=== PATIENT | male | born 1970 | race Caucasian/White ===

== ENCOUNTER 2020-08-04 09:36 | Outpatient (CLI) | payer OTHER, SELFPAY ==
--- NOTE | ~2020-08-04 | XR_ITS ---
EXAMINATION: XR hip BI wo pelvis EXAM DATE: 08/04/2020 11:05 INDICATION: right hip pain, left hip pain. TECHNIQUE: Each hip imaged independently (separate right and also left hip) 'frog leg' and frontal p rojections for interpretation. Comparison is made to prior examination from 11/09/2015. FINDINGS: No radiographic evidence of hip avascular necrosis. There is mild symmetric bilateral hip primary osteoarthritis. There is screw bridging the left sacroiliac joint. There are no acute fractur es or dislocations identified. There is no subcutaneous gas. The soft tissue is unremarkable. IMPRESSION: Mild bilateral hip osteoarthritis. Reviewed, dictated and finalized at location B. OR FITTER
--- NOTE | ~2020-08-04 | XR_ITS ---
EXAMINATION: XR lumbar spine min 4V EXAM DATE: 08/04/2020 11:05 INDICATION: Back pain. TECHNIQUE: Lumber spine frontal, lateral, bilateral oblique projections. Coned down frontal and lat eral L5-S1 lumbar projections for interpretation. Comparison is made to prior examination from 016. FINDINGS: There is an orthopedic screw bridging the left sacroiliac joint. No spondylolysis. There is mild to moderate lower lumbar facet arthropathy. Mild to moderate disc disease L4-5 and L5-S1. There are no acute fractures identified. The vertebral bodies are aligned in the AP dimension. Paraspinal soft tissue is unremarkable. IMPRESSION: Mild to moderate lower lumbar spondylosis. Reviewed, dictated and finalized at location B. CA DRY PRESS HELPER
== END 2020-08-04 09:37 ==
PROVIDERS: Visit Provider Pain Medicine Pain Medicine
DX: M47.812 Spondylosis without myelopathy or radiculopathy, cervical region (principal); M17.0 Bilateral primary osteoarthritis of knee; M16.0 Bilateral primary osteoarthritis of hip
CPT/HCPCS: 72110; 73521

== ENCOUNTER 2020-10-16 15:24 | Emergency (ER) | payer OTHER, SELFPAY ==
--- NOTE | ~2020-10-16 | XR_ITS ---
EXAMINATION: XR hip LT 2V w AP pelvis INDICATION: Left hip pain TECHNIQUE: AP view the pelvis and two views of the left hip are obtained. COMPARISON: 08/04/2020 FINDINGS: There is screw fixation of a prior left sacral fracture. There is deformity of the left pub ic bone near the pubic symphysis, consistent with prior fracture. No acute fracture is identified. Th ere is an approximately 8.5 cm soft tissue density projecting near the greater trochanter of the left femur. IMPRESSION: 1. No acute osseous abnormality. 2. Soft tissue density projecting near the greater trochanter of the left femur, likely hematoma. 3. Old left pelvic fractures. Reviewed, dictated and finalized at location A. IMPRESSION: 1. No acute osseous abnormality. 2. Soft tissue density projecting near the greater trochanter of the left femur , likely hematoma. 3. Old left pelvic fractures.
[2020-10-16 16:01] VITALS: BP 141/66; PULSE 73; RESP 20; TEMP 36.8; O2SAT 100
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
[2020-10-16 17:39] LABS: Basophils Percent Auto 0.3 % (0.2-1.2); Eosinophils Absolute Auto 0.2 K/mm3 (0-0.3); Hematocrit 44.4 % (42.0-52.0); Hemoglobin 15.3 g/dL (14.0-18.0); Immature Granulocyte Absolute 0.05 K/mm3 (0.00-0.031); Immature Granulocyte Percent A 0.5 % (0-0.5); Lymphocytes Absolute Auto 1.47 K/mm3 (0.9-3.2); Lymphocytes Percent Auto 14.1 % (18.3-44.2); Mean Corpuscular HGB Conc 34.5 g/dl (32-36); Mean Corpuscular Hemoglobin 32.3 pg (26-34); Mean Corpuscular Volume 93.7 fl (80-100); Mean Platelet Volume 10.3 fl (7.4-10.4); Monocytes Percent Auto 9.2 % (2.6-8.5); Neutrophils Absolute Auto 7.7 K/mm3 (1.3-6.7); Neutrophils Percent Auto 73.9 % (45.5-73.1); Platelet Count Result 230 k/mm3 (150-375); Red Blood Count 4.74 M/mm3 (4.6-6.20); Red Cell Distribution Width 12.7 % (11.5-14.5); White Blood Count 10.5 K/mm3 (4.5-10.0)
[2020-10-16 18:18] LABS: Anion Gap 4 mmol/L (8-16); Blood Urea Nitrogen 43 mg/dL (9-20); CRP 2.1 mg/dL (<1.0); Calcium 9.2 mg/dL (8.4-10.2); Carbon Dioxide 31 mmol/L (22-30); Chloride 105 mmol/L (98-107); Estimated CRCL calculation 47 ml/min; Estimated Glomerular Filt Rate 46; Glucose 134 mg/dL (75-110); Sodium 140 mmol/L (137-145)
[2020-10-16 18:25] LABS: Erythrocyte Sedimentation Rate 3 mm/hr (0-20)
== END 2020-10-16 19:15 | disposition home or self-care (01) ==
PROVIDERS: Emergency Provider Emergency Medicine; PCP Family Medicine
DX: S70.02XA Contusion of left hip, initial encounter (principal); E86.0 Dehydration; V86.09XA Driver of other special all-terrain or other off-road motor vehicle injured in traffic accident, initial encounter
CPT/HCPCS: 36415; 73502; 80048; 85025; 85652; 86140; 99283

== ENCOUNTER 2021-08-14 16:04 | Outpatient (CLI) | payer OTHER, SELFPAY ==
--- NOTE | ~2021-08-14 | MR_ITS ---
EXAMINATION: MR elbow LT wo con DATE: 08/14/2021 16:49 INDICATION: Left elbow pain post fall TECHNIQUE: Magnetic resonance imaging (MRI) of the left elbow was performed without intravenous contr ast. Sequences included coronal, axial, and sagittal PD-weighted FS FSE and coronal, axial, and sagit cherri PD-weighted FSE. COMPARISON: None FINDINGS: Osseous/other: Normal alignment. Normal marrow signal with no marrow edema, fracture, osteochondral lesion or patho logic marrow replacing process. Mild osteoarthritis at the left elbow with nonuniform partial thickne ss cartilage loss in all 3 compartments . Region deeper chondral ulceration with tiny focus of subart icular edema-like change along the rim of the radial head. Tendons: Triceps and brachialis tendons are normal. Mild tendinopathy without discrete tear at the radial inse rtion of the distal biceps brachii tendon. Moderate tendinopathy without discrete tear at lateral epi condylar origin of the common extensor tendon wad. Additional moderate tendinopathy of the common fl exor tendon wad with tiny tear measuring approximately 3 x 1 mm along the medial epicondylar insertio n. Ligaments: The medial collateral ligament complex is normal. Near complete tear of the radial collateral ligamen t component of the lateral collateral ligament complex the lateral ulnar collateral ligament and scott lar ligament components of the complex remain intact. Cubital tunnel: Cubital tunnel is unremarkable with normal signal and caliber of the ulnar nerve. Fluid: Physiologic amount of fluid the elbow joint. IMPRESSION: 1. Moderate tendinopathy with tiny partial-thickness tear at the medial epicondylar origin of the com mon flexor tendon wad. 2. Moderate tendinopathy without tear at the common extensor tendon wad. 3. Mild tendinopathy without tear at the distal biceps brachii tendon. 4. Complete tear of the radial collateral ligament component of the lateral collateral ligament compl ex. 5. Mild osteoarthritis in all 3 compartments of the left elbow. Reviewed, dictated and finalized at location A. IMPRESSION: 1. Moderate tendinopathy with tiny partial-thickness tear at the medial epicond ylar origin of the common flexor tendon wad. 2. Moderate tendinopathy without tear at the common extensor tendon wad. 3. Mild tendinopathy without tear at the distal biceps brachii tendon. 4. Complete tear of the radial collateral ligament component of the lateral col lateral ligament complex. 5. Mild osteoarthritis in all 3 compartments of the left elbow.
== END 2021-08-14 16:05 ==
DX: M77.02 Medial epicondylitis, left elbow (principal); S53.432A Radial collateral ligament sprain of left elbow, initial encounter; X58.XXXA Exposure to other specified factors, initial encounter; M19.022 Primary osteoarthritis, left elbow
CPT/HCPCS: 73221

== ENCOUNTER 2022-01-08 16:51 | Emergency (ER) | payer OTHER, SELFPAY ==
[2022-01-08] VITALS (8 sets, daily range): BP systolic 156–166; BP diastolic 73–90; PULSE 40–89; RESP 14–20; TEMP 36.6; O2SAT 98–100
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
[2022-01-08 19:59] LABS: Basophils Percent Auto 0.4 % (0.2-1.2); Eosinophils Absolute Auto 0.1 K/mm3 (0-0.3); Eosinophils Percent Auto 2.3 % (0-4.4); Hematocrit 37.1 % (42.0-52.0); Hemoglobin 12.9 g/dL (14.0-18.0); Immature Granulocyte Absolute 0.02 K/mm3 (0.00-0.031); Immature Granulocyte Percent A 0.4 % (0-0.5); Lymphocytes Absolute Auto 1.52 K/mm3 (0.9-3.2); Lymphocytes Percent Auto 29.1 % (18.3-44.2); Mean Corpuscular HGB Conc 34.8 g/dl (32-36); Mean Corpuscular Hemoglobin 32.1 pg (26-34); Mean Corpuscular Volume 92.3 fl (80-100); Mean Platelet Volume 10.5 fl (7.4-10.4); Monocytes Absolute Auto 0.5 K/mm3 (0.1-0.6); Monocytes Percent Auto 10.3 % (2.6-8.5); Neutrophils Percent Auto 57.5 % (45.5-73.1); Platelet Count Result 199 k/mm3 (150-375); Red Blood Count 4.02 M/mm3 (4.6-6.20); Red Cell Distribution Width 13.2 % (11.5-14.5); White Blood Count 5.2 K/mm3 (4.5-10.0)
[2022-01-08 20:08] LABS: Alanine Aminotransferase 45 U/L (6-50); Albumin Level 3.9 g/dL (3.5-5.1); Alkaline Phosphatase 90 U/L (38-126); Anion Gap 8 mmol/L (8-16); Aspartate Amino Transferase 42 U/L (17-59); Bilirubin,Total 0.6 mg/dL (0.2-1.3); Blood Urea Nitrogen 15 mg/dL (9-20); Calcium 8.9 mg/dL (8.4-10.2); Carbon Dioxide 30 mmol/L (22-30); Chloride 101 mmol/L (98-107); Estimated CRCL calculation 88 ml/min; Estimated Glomerular Filt Rate > 60; Glucose 97 mg/dL (65-110); Potassium 4.1 mmol/L (3.4-5.0); Sodium 139 mmol/L (137-145)
[2022-01-08] MEDS: KETOROLAC 30 MG/ML VIAL (*BKC) IV PUSH (21:54)
== END 2022-01-08 22:04 | disposition home or self-care (01) ==
PROVIDERS: Physician Assistant; Emergency Provider Emergency Medicine; PCP Family Medicine
DX: S30.0XXA Contusion of lower back and pelvis, initial encounter (principal); R00.1 Bradycardia, unspecified; V29.9XXA Motorcycle rider (driver) (passenger) injured in unspecified traffic accident, initial encounter
CPT/HCPCS: 36415; 74177; 80053; 85025; 96374; 99284; J1885; Q9967

== ENCOUNTER 2023-07-26 13:42 | Outpatient (CLI) | payer OTHER, SELFPAY ==
--- NOTE | ~2023-07-26 | XR_ITS ---
Right elbow Technique: AP, oblique, and lateral views were obtained. Clinical History: Pain Findings: No acute fracture or dislocation is seen. Osseous alignment is anatomic. Joint spaces are p reserved. There is no displacement of the fat pads, and soft tissues are unremarkable. Impression: Unremarkable radiographs. Reviewed, dictated and finalized at [facility]. RIBUTION A CLASS LINEMAN Impression: Unremarkable radiographs.
== END 2023-07-26 13:43 ==
LOC: MICIMG 13:45
PROVIDERS: PCP Pain Medicine Pain Medicine; Visit Provider Pain Medicine Pain Medicine
DX: M25.521 Pain in right elbow (principal)
CPT/HCPCS: 73080

== ENCOUNTER 2023-11-07 14:05 | Outpatient (CLI) | payer OTHER, SELFPAY ==
--- NOTE | ~2023-11-07 | XR_ITS ---
XR lumbar spine 2-3V 11/07/2023 14:21 Indication: Back pain Procedure: 3 views lumbar spine Comparison: 08/04/2020 Findings: Stable alignment of plaque screw transfixing the left sacroiliac joint. There is disc narro wing at L2-3 through L5-S1. Small bridging osteophytes are present at L2-3 and L3-4 on the left. No a cute fracture or traumatic malalignment. No evidence for spondylolisthesis. Impression: 1: Mild-moderate lumbar spondylosis. Reviewed, dictated and finalized at location B. Impression: 1: Mild-moderate lumbar spondylosis.
== END 2023-11-07 14:06 ==
PROVIDERS: PCP Pain Medicine Pain Medicine; Visit Provider Pain Medicine Pain Medicine
DX: M47.816 Spondylosis without myelopathy or radiculopathy, lumbar region (principal); M51.36 Other intervertebral disc degeneration, lumbar region
CPT/HCPCS: 72100

== ENCOUNTER 2024-04-30 14:41 | Outpatient (CLI) | payer OTHER, SELFPAY ==
--- NOTE | ~2024-04-30 | XR_ITS ---
XR knee LT min 4V 04/30/2024 15:00 Indication: Primary osteoarthritis of the knee. Procedure: 4 views left knee Comparison: 10/24/2017 Findings: Mild tricompartment osteoarthritis. There is an intramedullary sherwin in the tibia. There is a healed proximal fibular fracture. No joint effusion. Impression: 1: Mild tricompartment osteoarthritis. Reviewed, dictated and finalized at location B. HER'S ASSISTANT Impression: 1: Mild tricompartment osteoarthritis.
--- NOTE | ~2024-04-30 | XR_ITS ---
XR knee RT min 4V 04/30/2024 15:00 Indication: Right knee pain Procedure: 4 views right knee Comparison: 10/10/2017 Findings: No fracture, subluxation or dislocation. There is mild osteoarthritis. No joint effusion. Impression: 1: Mild osteoarthritis of the right knee. Reviewed, dictated and finalized at location B. NICIAN TRAINEE Impression: 1: Mild osteoarthritis of the right knee.
== END 2024-04-30 14:42 | disposition home or self-care (01) ==
PROVIDERS: PCP Pain Medicine Pain Medicine; Visit Provider Pain Medicine Pain Medicine
DX: M17.11 Unilateral primary osteoarthritis, right knee (principal); M17.12 Unilateral primary osteoarthritis, left knee
CPT/HCPCS: 73564

== ENCOUNTER 2025-03-10 14:33 | Outpatient (CLI) | payer OTHER, SELFPAY ==
--- NOTE | ~2025-03-10 | XR_ITS ---
EXAMINATION: XR shoulder RT min 2V, 03/10/2025 14:40 CDT HISTORY: ANTERIOR RT SHOULDER PAIN x1.5 MONTHS COMPARISON: No comparisons available. Findings: No acute fracture or malalignment. No significant degenerative changes. Soft tissues unremarkable. Impression: No acute fracture or malalignment. Reviewed, dictated and finalized at location P. Impression: No acute fracture or malalignment.
== END 2025-03-10 14:34 | disposition home or self-care (01) ==
LOC: MICIMG 14:36
PROVIDERS: PCP Pain Medicine Pain Medicine; Visit Provider Pain Medicine Pain Medicine
DX: M25.511 Pain in right shoulder (principal)
CPT/HCPCS: 73030